=== PATIENT | male | born 1950 | race African-American/Black ===

== ENCOUNTER 2017-08-10 15:00 | Outpatient (CLI) | payer MEDICARE, BC | END 2017-08-10 15:01 | disposition home or self-care (01) | LOC: BICRAD 15:00 | PROVIDERS: ATTEND Specialist | DX: M25.551 Pain in right hip (principal); M76.51 Patellar tendinitis, right knee; M47.896 Other spondylosis, lumbar region | CPT/HCPCS: 72100 ==